=== PATIENT | female | born 1970 | race Caucasian/White ===

== ENCOUNTER → 2023-11-18 | Outpatient (CLI) | payer OTHER | END | disposition home or self-care (01) | LOC: RAD 14:17 | PROVIDERS: ATTEND Orthopaedic Surgery | DX: S82.61XA Displaced fracture of lateral malleolus of right fibula, initial encounter for closed fracture (principal); M79.89 Other specified soft tissue disorders; X58.XXXA Exposure to other specified factors, initial encounter; Y93.89 Activity, other specified; Y92.89 Other specified places as the place of occurrence of the external cause; Y99.8 Other external cause status | CPT/HCPCS: 73590-RT; 73610-RT ==

== ENCOUNTER → 2023-12-30 | Outpatient (CLI) | payer OTHER | END | disposition home or self-care (01) | LOC: RAD 09:46 | PROVIDERS: ATTEND Orthopaedic Surgery | DX: S82.891D Other fracture of right lower leg, subsequent encounter for closed fracture with routine healing (principal); X58.XXXD Exposure to other specified factors, subsequent encounter | CPT/HCPCS: 73610-RT ==

== ENCOUNTER → 2024-01-29 | Outpatient (CLI) | payer OTHER | END | disposition home or self-care (01) | LOC: RAD 09:25 | PROVIDERS: ATTEND Orthopaedic Surgery | DX: S82.401D Unspecified fracture of shaft of right fibula, subsequent encounter for closed fracture with routine healing (principal); M77.31 Calcaneal spur, right foot; X58.XXXD Exposure to other specified factors, subsequent encounter | CPT/HCPCS: 73610-RT ==